=== PATIENT | male | born 1965 | race Caucasian/White ===

== ENCOUNTER 2020-01-25 05:09 | Emergency (ER) | payer SELFPAY ==
[~2020-01-25] VITALS: Ht 205.7 cm; Wt 113.4 kg
[~2020-01-25 05:09] MED LIST: CARAFATE1 G PO; HYDROCODONE-APA1 TAB PO; NATURAL THYROID; PRILOSEC20 MG PO
[2020-01-25 05:21] VITALS: Ht 205.7 cm; Wt 113.4 kg
[2020-01-25 05:45] LABS: BASOPHILS 0.1 % (0-2); EOSINOPHILS 0.2 % (0-7); HEMATOCRIT 43.9 % (42.0-54.0); HEMOGLOBIN 14.5 g/dL (13.5-17.5); IMMATURE GRANULOCYTES 0.3 % (0-5); LYMPHOCYTES 19.8 % (15-50); MCH 30.2 pg (26.0-34.0); MCV 91.5 fL (80.0-100.0); MEAN PLATELET VOLUME 12.2 fL (7.4-10.4); MONOCYTES 11.1 % (2-11); NEUTROPHILS 68.5 % (40-80); RDW 13.1 % (11.5-14.5); WBC 11.5 10x3/uL (4.8-10.8)
[2020-01-25 05:50] LABS: BILIRUBIN NEGATIVE (NEGATIVE); GLUCOSE NEGATIVE (NEGATIVE); KETONE SMALL mg/dL (NEGATIVE); NITRITE NEGATIVE (NEGATIVE); UROBILINOGEN NORMAL (NORMAL)
[2020-01-25 05:52] LABS: BACTERIA FEW /hpf (NEGATIVE); EPITHELIAL CELLS 0-5 /hpf (0-5); RED CELLS - URINE 0-5 /hpf (0-5); WHITE CELLS - URINE 0-5 /hpf (NEGATIVE)
[2020-01-25 05:52] LABS: PLATELET COUNT 146 10x3/uL (130-400)
[2020-01-25] MEDS ORDERED: FLOMAX0.4 MG PO (06:14)
[2020-01-25] MEDS ORDERED: MACROBID100 MG PO (06:14)
[2020-01-25 07:53] LABS: CALC OSMOLALITY 265 mosm/kg (275-300); CALCIUM 8.8 mg/dL (8.5-10.1); CARBON DIOXIDE 24.8 mmol/L (21.0-32.0); CHLORIDE - SERUM 99 mmol/L (98-107); CREATININE - SERUM 1.1 mg/dL (0.6-1.3); GLUCOSE 113 mg/dL (74-106); POTASSIUM - SERUM 4.6 mmol/L (3.5-5.1); SODIUM 133 mmol/L (136-145); UREA NITROGEN 11 mg/dL (7-18); eGFR NON AFRICAN AMERICAN 74 mL/min (90-120)
[2020-01-25 08:01] LABS: ALKALINE PHOSPHATASE 76 U/L (30-120); ALT (SGPT) 8 U/L (10-68); AMYLASE - SERUM 32 U/L (25-115); BILIRUBIN - TOTAL 2.23 mg/dL (0.2-1.3); LIPASE 104 U/L (73-393); PROTEIN - SERUM 7.6 g/dL (6.4-8.2); TROPONIN-I < 0.017 ng/mL (0.000-0.060)
[2020-01-25 08:53] VITALS: BP 108/73
== END 2020-01-25 08:40 | disposition home or self-care (01) ==
LOC: D.ER 05:09
PROVIDERS: Emergency Medicine
DX: K59.00 Constipation, unspecified (principal); R33.9 Retention of urine, unspecified; R82.71 Bacteriuria; M54.9 Dorsalgia, unspecified

== ENCOUNTER 2020-01-28 07:35 | Inpatient (IN) | payer MEDICAID ==
[2020-01-28] VITALS (7 sets, daily range): BP systolic 99–124; BP diastolic 50–71; Ht 205.7 cm; Wt 120.5 kg
[~2020-01-28] VITALS: Ht 205.7 cm; Wt 120.5 kg
[~2020-01-28 07:35] MED LIST changes: +FLOMAX0.4 MG PO; +MACROBID100 MG PO
[2020-01-28] MEDS ORDERED: MACROBID100 MG PO (08:02)
[2020-01-28] MEDS ORDERED: DOXYCYCLINE HY100 M2 PO (08:03)
[2020-01-28 08:15] LABS: CALC OSMOLALITY 266 mosm/kg (275-300); CARBON DIOXIDE 28.1 mmol/L (21.0-32.0); CHLORIDE - SERUM 100 mmol/L (98-107); GLUCOSE 128 mg/dL (74-106); POTASSIUM - SERUM 4.3 mmol/L (3.5-5.1); SODIUM 133 mmol/L (136-145); UREA NITROGEN 9 mg/dL (7-18); eGFR NON AFRICAN AMERICAN 82 mL/min (90-120)
[2020-01-28 08:21] LABS: ALBUMIN 2.9 g/dL (3.4-5.0); ALKALINE PHOSPHATASE 78 U/L (30-120); ALT (SGPT) 5 U/L (10-68); BILIRUBIN - TOTAL 1.03 mg/dL (0.2-1.3); PROTEIN - SERUM 7.4 g/dL (6.4-8.2)
--- NOTE | 2020-01-28 08:38 | NUR ---
THIS NURSE WAS NOT ABLE TO OBTAIN FRESH URINE AT THIS TIME.
--- NOTE | 2020-01-28 08:39 | NUR ---
PT TO CT
--- NOTE | 2020-01-28 09:16 | NUR ---
URINE TO LAB
[2020-01-28 09:22] LABS: BASOPHILS 0.1 % (0-2); EOSINOPHILS 0.5 % (0-7); HEMATOCRIT 43.4 % (42.0-54.0); HEMOGLOBIN 14.3 g/dL (13.5-17.5); IMMATURE GRANULOCYTES 0.2 % (0-5); LYMPHOCYTES 14.4 % (15-50); MCHC 32.9 g/dL (31.0-37.0); MONOCYTES 10.6 % (2-11); NEUTROPHILS 74.2 % (40-80); PLATELET COUNT 175 10x3/uL (130-400); RBC 4.77 10x6/uL (4.20-6.10)
[2020-01-28 09:34] LABS: BILIRUBIN NEGATIVE (NEGATIVE); GLUCOSE NEGATIVE (NEGATIVE); KETONE NEGATIVE (NEGATIVE); NITRITE NEGATIVE (NEGATIVE); SPECIFIC GRAVITY 1.005 (1.005-1.020); UROBILINOGEN NORMAL (NORMAL)
[2020-01-28 09:35] LABS: BACTERIA FEW /hpf (NEGATIVE); EPITHELIAL CELLS RARE /hpf (0-5); RED CELLS - URINE 0-5 /hpf (0-5); WHITE CELLS - URINE NSEEN /hpf (NEGATIVE)
[2020-01-28 09:36] LABS: CALCIUM OXALATE CRYSTALS RARE /hpf (NONE SEEN)
--- NOTE | 2020-01-28 10:19 | NUR ---
PT ARRIVED WITH INDWELLING CATHETER. DARK YELLOW URINE WITH SEDAMENT.
--- NOTE | 2020-01-28 10:19 | NUR ---
LEVAQUIN 750MG/90MIN INFUSING UPON TRANSFER FLAGYL 500MG/H INFUSING UPON TRANSFER
--- NOTE | 2020-01-28 18:15 | NUR ---
PATIENT RECEIVED FROM OR AND STABLE WITH FAMILY PRESENT DRESSING INTACT TO PERIRECTAL AREA. RESPONDS APPROPRIATE TO VERBAL COMMANDS. O2 3L N/C WITH IVF REESTABLISHED
--- NOTE | 2020-01-29 02:25 | NUR ---
PT RESTING IN BED. EYES CLOSED. NO SIGNS OF DISTRESS. BREATHING EVEN AND UNLABORED. IV SITE RT FA DRESSING CLEAN DRY AND INTACT. NO SIGNS OF INFECTION OR INFULTRATION. SKIN CLEAN DRY AND INTACT. BEASLEY IN PLACE. DRESSING TO BUTTOCKS CLEAN DRY AND INTACT. WILL CONTINUE PLAN OF CARE. CALL LIGHT IN REACH. BED LOWERED AND LOCKED. BED RAILS UPX3.
[2020-01-29 04:00] VITALS: BP 88/54
[2020-01-29 04:47] LABS: BASOPHILS 0.2 % (0-2); EOSINOPHILS 1.5 % (0-7); HEMATOCRIT 36.3 % (42.0-54.0); HEMOGLOBIN 11.7 g/dL (13.5-17.5); IMMATURE GRANULOCYTES 0.6 % (0-5); LYMPHOCYTES 16.3 % (15-50); MCH 29.7 pg (26.0-34.0); MCHC 32.2 g/dL (31.0-37.0); MCV 92.1 fL (80.0-100.0); MEAN PLATELET VOLUME 11.3 fL (7.4-10.4); MONOCYTES 11.5 % (2-11); NEUTROPHILS 69.9 % (40-80); PLATELET COUNT 185 10x3/uL (130-400); RBC 3.94 10x6/uL (4.20-6.10); RDW 13.2 % (11.5-14.5)
--- NOTE | 2020-01-29 04:48 | NUR ---
I have reviewed this patient and I concur with the Shift Assessment completed by the Licensed Practical Nurse today this shift.
[2020-01-29 05:21] LABS: CALC OSMOLALITY 271 mosm/kg (275-300); CALCIUM 8.1 mg/dL (8.5-10.1); CARBON DIOXIDE 28.8 mmol/L (21.0-32.0); CHLORIDE - SERUM 103 mmol/L (98-107); GLUCOSE 110 mg/dL (74-106); MAGNESIUM - SERUM 2.3 mg/dL (1.8-2.4); POTASSIUM - SERUM 4.5 mmol/L (3.5-5.1); SODIUM 136 mmol/L (136-145); UREA NITROGEN 9 mg/dL (7-18); eGFR NON AFRICAN AMERICAN 82 mL/min (90-120)
--- NOTE | 2020-01-29 07:30 | NUR ---
PATIENT AND FAMILY IN ROOM. CHAIR CHANGED OUT FOR FAMILY TO BE MORE COMFORTABLE WELL TO SLEEP IN. NO NEEDS AT THIS TIME. WCTM
--- NOTE | 2020-01-29 08:20 | OP ---
PATIENT NAME: KIRSTEN DE MEDICAL RECORD: [id number] :63 LOCATION:D.MS [facility] ADMISSION DATE:01/28/20 SURGEON: TESSY WOO MD DATE OF OPERATION: 01/28/2020 SURGEON: Tessy Woo MD PREOPERATIVE DIAGNOSIS: Perirectal abscess. POSTOPERATIVE DIAGNOSIS: Complex multiloculated horseshoe perirectal abscess. PROCEDURE PERFORMED: Incision and drainage of perirectal abscess with packing. ANESTHESIA: General. COMPLICATIONS: None. WOUND: Grossly contaminated. SPECIMENS: Anaerobic and aerobic fluid cultures. OPERATIVE COURSE: After consent was obtained, the patient was taken to the operating room and placed in supine position on the operating table. Next, general anesthesia was given via endotracheal intubation after a timeout was performed to confirm the correct patient and procedure. The patient was then placed into the lithotomy position. The perineum was prepped and draped in typical sterile fashion. A 30 mL of local anesthetic were injected. There was an area of necrotic-appearing skin over the area of greatest fluctuance on the left side of the rectum. The rectum was serially dilated using the Collier-Hill retractors. There was no active communication or drainage into the rectum were some internal hemorrhoids noted. The skin was excised using a 15 blade scalpel, approximately 120 cc of purulent fluid suctioned from the wound. Anaerobic and aerobic fluid cultures were obtained and sent for Gram stain and sensitivity. Blunt finger dissection was used to break up all loculations. The perirectal abscess extended circumferentially around the rectum in a horseshoe configuration. Approximate total - length of 16 cm, 4 cm depth, and 5 cm in width. The wound was copiously irrigated and suctioned. The wound was then packed with two 2 inch Kerlix soaked in peroxide and iodine. At the end of the case, all needle and instrument counts were correct. No complications occurred. The patient was extubated and transferred to the PACU in stable condition. TRANSINT:[id number] Voice Confirmation ID: [id number] DOCUMENT ID: [id number] TESSY WOO MD at 0820 CC: [id number] DICTATION DATE: 01/28/20 172 WAITER/WAITRESS SECOND CLASS: 01/29/20 0055 [place] [address]
[2020-01-29 08:57] VITALS: BP 94/57
--- NOTE | 2020-01-29 10:48 | NUR ---
PATIENT STATES HE WOULD LIKE A SHOWER. I CAN DO A DRESSING CHANGE AFTERWARDS. CL IN REACH. MIRNATM
[2020-01-29 12:48] VITALS: BP 122/70
[2020-01-29 13:48] VITALS: BP 119/67
[2020-01-29 20:00] VITALS: BP 122/68
[2020-01-30] VITALS: BP 130/74
[2020-01-30 04:00] VITALS: BP 117/64
[2020-01-30 06:12] LABS: BASOPHILS 0.3 % (0-2); EOSINOPHILS 5.3 % (0-7); HEMATOCRIT 38.3 % (42.0-54.0); HEMOGLOBIN 12.3 g/dL (13.5-17.5); LYMPHOCYTES 22.4 % (15-50); MCH 29.5 pg (26.0-34.0); MCHC 32.1 g/dL (31.0-37.0); MCV 91.8 fL (80.0-100.0); MEAN PLATELET VOLUME 11.2 fL (7.4-10.4); MONOCYTES 10.3 % (2-11); NEUTROPHILS 59.7 % (40-80); PLATELET COUNT 182 10x3/uL (130-400); RBC 4.17 10x6/uL (4.20-6.10); RDW 13.2 % (11.5-14.5)
[2020-01-30 06:29] LABS: CALC OSMOLALITY 275 mosm/kg (275-300); CALCIUM 8.2 mg/dL (8.5-10.1); CHLORIDE - SERUM 105 mmol/L (98-107); GLUCOSE 120 mg/dL (74-106); MAGNESIUM - SERUM 2.4 mg/dL (1.8-2.4); PHOSPHOROUS 4.5 mg/dL (2.5-4.9); POTASSIUM - SERUM 4.6 mmol/L (3.5-5.1); SODIUM 138 mmol/L (136-145); UREA NITROGEN 10 mg/dL (7-18); eGFR NON AFRICAN AMERICAN 82 mL/min (90-120)
--- NOTE | 2020-01-30 08:07 | NUR ---
PT RESTING IN BED WITH EYES OPEN, ALERT AND ORIENTED. IV LOCATED TO RIGHT FOREARM RUNNING KVO. NO S/S OF DISTRESS , DENIES NEEDS AT THIS TIME, WILL CONT TO MONITOR.
[2020-01-30 08:29] VITALS: BP 121/75
[2020-01-30 12:47] VITALS: BP 153/72
[2020-01-30 16:45] VITALS: BP 126/71
--- NOTE | 2020-01-30 19:00 | NUR ---
BEDSIDE REPORT RECEIVED AND CARE OF PT ASSUMED. PT LYING IN SUPINE POSITION WITH EYES CLOSED. IV TO RIGHT FA PATENT WITH NS INFUSING AT KVO. WILL MONITOR FOR NEEDS.
[2020-01-30 20:00] VITALS: BP 111/68
--- NOTE | 2020-01-30 20:47 | NUR ---
PT DECLINED HS MEDS. WILL CONTINUE TO MONITOR FOR NEEDS.
[2020-01-31] VITALS: BP 148/83
[2020-01-31 04:00] VITALS: BP 139/74
[2020-01-31 06:06] LABS: BASOPHILS 0.4 % (0-2); EOSINOPHILS 4.5 % (0-7); HEMATOCRIT 38.2 % (42.0-54.0); HEMOGLOBIN 12.1 g/dL (13.5-17.5); IMMATURE GRANULOCYTES 4.1 % (0-5); LYMPHOCYTES 28.7 % (15-50); MCH 29.4 pg (26.0-34.0); MCHC 31.7 g/dL (31.0-37.0); MCV 92.9 fL (80.0-100.0); MEAN PLATELET VOLUME 11.4 fL (7.4-10.4); MONOCYTES 13.2 % (2-11); NEUTROPHILS 49.1 % (40-80); PLATELET COUNT 208 10x3/uL (130-400); RBC 4.11 10x6/uL (4.20-6.10); RDW 13.5 % (11.5-14.5); WBC 7.3 10x3/uL (4.8-10.8)
[2020-01-31 06:24] LABS: ANION GAP 8.9 mmol/L (8-16); CALCIUM 8.2 mg/dL (8.5-10.1); CARBON DIOXIDE 30.3 mmol/L (21.0-32.0); CREATININE - SERUM 1.1 mg/dL (0.6-1.3); MAGNESIUM - SERUM 2.1 mg/dL (1.8-2.4); PHOSPHOROUS 4.4 mg/dL (2.5-4.9); POTASSIUM - SERUM 4.2 mmol/L (3.5-5.1)
[2020-01-31 07:39] VITALS: BP 127/78
--- NOTE | 2020-01-31 09:24 | NUR ---
AWAKE, REFUSING SOME OF HIS MEDS. HE ASKED ME TO REMOVE THE OUTER DRESSING. DOES NOT WANT ANY PAIN MEDS.
[2020-01-31] MEDS ORDERED: MIRALAX17 GM PO (09:51)
[2020-01-31] MEDS ORDERED: Levaquin PO (09:51)
[2020-01-31] MEDS ORDERED: FLAGYL500 MG PO (09:53)
--- NOTE | 2020-01-31 10:21 | NUR ---
EDUCATED MR. DE ABOUT HIS BEASLEY. HE HAS BEEN REFUSING THE FLOMAX, HE STATES "I DON'T THINK I WOULD HAVE ANY PROBLEMS PEEING NOW THAT I HAD THE SURGERY DONE". I ALSO EDUCATED ABOUT KEEPING HIMSELF CLEAN. HE DID NOT CLEAN HIS BOTTOM AFTER HE HAD A BM THIS MORNING. I CLEANED HIS BOTTOM AND PLACED A FEW 4X4 ON THE OUTSIDE OF WOUND AND PLACED MESH UNDERWEAR ON THE DRESSING.
--- NOTE | 2020-01-31 10:45 | NUR ---
PT'S PHARMACY CLOSED TODAY. RX'S FOR ILIA AND EDUIN CALLED TO [facility]. SPOKE WITH KELLI, PHARMACIST.
--- NOTE | 2020-01-31 11:50 | MORECARE ---
CASE MANAGEMENT DISCHARGE SUMMARY PATIENT: KIRSTEN DE UNIT: [id number] ADM DATE: 01/28/20 AGE: 54 : 63 SEX: M ROOM/BED: D.2212 AUTHOR: KAY,DOC PHYSICIAN: REFERRING PHYSICIAN: DMITRY LEE MD DATE OF SERVICE: 01/31/20 Discharge Plan Patient Name: KIRSTEN DE Facility: [facility]:[place] : 1965 Planned Disposition: Anticipated Discharge Date: Discharge Date: Expected LOS: Initial Reviewer: [id number] Initial Review Date: 01/31/2020 Generated: 01/31/20 12:50 pm Comments DCP- Discharge Planning Updated by [email or web address]: Merry Vega on 01/31/20 10:[address] Patient Name: KIRSTEN DE Admission Status: ER Accout number: [id number] Admission Date: 01-28-2020 : 1965 Admission Diagnosis: Attending: DMITRY LEE Current LOS: 3 Anticipated DC Date: Planned Disposition: Primary Insurance: MEDICAID [place] PENDING Discharge Planning Comments: KIRSTEN DE provided verbal consent to discuss current and ongoing needs with/in the presence of HIS SISTER KO. CM MET WITH PATIENT TO DISCUSS DC PLANNING/NEEDS. PLANS TO DC TO HOME TODAY. HE IS STILL FRANDY PENDING BUT WOULD LIKE FOR WOUND CARE. 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 [facility] SIGNED FOR [facility]. REFERRAL AND DOCUMENTS FAXED TO [facility]. MSG LEFT WITH [facility] OF [facility]. CONTACT INFORMATION WAS GIVEN TO PATIENT AND HIS SISTER. STATES IF CAN'T REACH HIM ON HIS PHONE THEN CALL HIS SISTER AT [phone] AND SHE WILL CONTACT HIM. SHE LIVES SEVERAL BLOCKS FROM HIM. CM WILL FOLLOW AND ASSIST NEEDED. Lithostripper: Merry [email or web address] - Discharge Planning Initial Assessment Updated by [email or web address]: Merry Vega on 01/31/20 11:44 am * Is the patient Alert and Oriented? Yes * [facility] * [facility] * Preadmission Environment Home Alone * ADLs Independent * Additional services required to return to the preadmission environment? No * Can the patient safely return to the preadmission environment? Yes * Has this patient been hospitalized within the prior 30 days at any hospital? No External Providers External Provider: [facility] Next Contact Date: Service Request Date: Service Type: Resolution: Reviewer: Comments: Patient Name: KIRSTEN DE Page [phone] at 1150 All edits/amendments must be made on the electronic document DICTATION DATE: 01/31/20 115 TREE GIRDLER: REUBEN 01/31/20 1150 RPT#: [id number] DC DATE: STATUS: ADM IN [facility] [address] [place] [address] END OF REPORT
--- NOTE | 2020-01-31 12:02 | MORECARE ---
CASE MANAGEMENT DISCHARGE SUMMARY PATIENT: KIRSTEN DE UNIT: [id number] ADM DATE: 01/28/20 AGE: 54 : 63 SEX: M ROOM/BED: D.2212 AUTHOR: KAYDOC PHYSICIAN: REFERRING PHYSICIAN: DMITRY LEE MD DATE OF SERVICE: 01/31/20 Discharge Plan Patient Name: KIRSTEN DE Facility: [facility]:[place] : 1965 Planned Disposition: Anticipated Discharge Date: Discharge Date: Expected LOS: Initial Reviewer: [email or web address] Initial Review Date: 01/31/2020 Generated: 01/31/20 1:02 pm Comments DCP- Discharge Planning Updated by [email or web address]: Merry Vega on 01/31/20 11:[address] Patient Name: KIRSTEN DE Admission Status: ER Accout number: [id number] Admission Date: 01-28-2020 : 1965 Admission Diagnosis: Attending: DMITRY LEE Current LOS: 3 Anticipated DC Date: Planned Disposition: Primary Insurance: MEDICAID [place] PENDING Discharge Planning Comments: KIRSTEN DE provided verbal consent to discuss current and ongoing needs with/in the presence of HIS SISTER KO. CM MET WITH PATIENT TO DISCUSS DC PLANNING/NEEDS. PLANS TO DC TO HOME TODAY. HE IS STILL FRANDY PENDING BUT WOULD LIKE FOR WOUND CARE. 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 PAIGE SIGNED FOR [facility]. REFERRAL AND DOCUMENTS FAXED TO [facility] . MSG LEFT WITH [facility] OF [facility]. CONTACT INFORMATION WAS GIVEN TO PATIENT AND HIS SISTER. STATES IF CAN'T REACH HIM ON HIS PHONE THEN CALL HIS SISTER AT [phone] AND SHE WILL CONTACT HIM. SHE LIVES SEVERAL BLOCKS FROM HIM. CM WILL FOLLOW AND ASSIST NEEDED. Needle Straightener: Merry Appended by Merry Vega on 01/31/2020 12:01 CDT: WOUND CARE INSTRUCTIONS: KEEP CLEAN AND DRY. CHANGE DAILY AND NEEDED. PER DR. WALLACE. DCPIA - Discharge Planning Initial Assessment Updated by [email or web address]: Merry Vega on 01/31/20 11:44 am * Is the patient Alert and Oriented? Yes * [facility] * [facility] * Preadmission Environment Home Alone * ADLs Independent * Additional services required to return to the preadmission environment? No * Can the patient safely return to the preadmission environment? Yes * Has this patient been hospitalized within the prior 30 days at any hospital? No Last DP export: 01/31/20 10:50 a Patient Name: KIRSTEN DE Page [phone] at 1202 All edits/amendments must be made on the electronic document DICTATION DATE: 01/31/20 120 CHIMNEY BUILDER: REUBEN 01/31/20 1202 RPT#: [id number] DC DATE: STATUS: ADM IN [facility] [address] [place] [address] END OF REPORT
--- NOTE | 2020-01-31 12:46 | NUR ---
DISCHARGE INSTRUCTIONS GONE OVER WITH THE PATIENT AND A NURSE HALIE. IV REMOVED. LEFT VIA WHEELCHAIR.
--- NOTE | 2020-01-31 17:10 | MORECARE ---
CASE MANAGEMENT DISCHARGE SUMMARY PATIENT: KIRSTEN DE UNIT: [id number] ADM DATE: 01/28/20 AGE: 54 : 63 SEX: M ROOM/BED: D.2212 AUTHOR: KAYDOC PHYSICIAN: REFERRING PHYSICIAN: DMITRY LEE MD DATE OF SERVICE: 01/31/20 Discharge Plan Patient Name: KIRSTEN DE Facility: [facility]:[place] : 1965 Planned Disposition: Anticipated Discharge Date: Discharge Date: 01/31/2020 Expected LOS: Initial Reviewer: [id number] Initial Review Date: 01/31/2020 Generated: 01/31/20 6:09 pm Comments DCP- Discharge Planning Updated by [email or web address]: Merry Vega on 01/31/20 11:[address] Patient Name: KIRSTEN DE Admission Status: ER Accout number: [id number] Admission Date: 01-28-2020 : 1965 Admission Diagnosis: Attending: DMITRY LEE Current LOS: 3 Anticipated DC Date: Planned Disposition: Primary Insurance: MEDICAID [place] PENDING Discharge Planning Comments: KIRSTEN DE provided verbal consent to discuss current and ongoing needs with/in the presence of HIS SISTER KO. CM MET WITH PATIENT TO DISCUSS DC PLANNING/NEEDS. PLANS TO DC TO HOME TODAY. HE IS STILL FRANDY PENDING BUT WOULD LIKE FOR WOUND CARE. 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 [facility] SIGNED FOR [facility]. REFERRAL AND DOCUMENTS FAXED TO [facility] . MSG LEFT WITH [facility]. CONTACT INFORMATION WAS GIVEN TO PATIENT AND HIS SISTER. STATES IF CAN'T REACH HIM ON HIS PHONE THEN CALL HIS SISTER AT [phone] AND SHE WILL CONTACT HIM. SHE LIVES SEVERAL BLOCKS FROM HIM. CM WILL FOLLOW AND ASSIST NEEDED. New Accounts Clerk: Merry Appended by Merry Vega on 01/31/2020 12:01 CDT: WOUND CARE INSTRUCTIONS: KEEP CLEAN AND DRY. CHANGE DAILY AND NEEDED. PER DR. WALLACE. DCPIA - Discharge Planning Initial Assessment Updated by [id number]: Merry Vega on 01/31/20 11:44 am * Is the patient Alert and Oriented? Yes * [facility] * [facility] * Preadmission Environment Home Alone * ADLs Independent * Additional services required to return to the preadmission environment? No * Can the patient safely return to the preadmission environment? Yes * Has this patient been hospitalized within the prior 30 days at any hospital? No Coverage Notice Reviewer: [id number] Katherine Vega Notice Issued Date-Time: 01/31/2020 12:03 Notice Type: Patient Choice Letter Notice Delivered To: Patient Relationship to Patient: Construction Cost Estimator Name: Delivery Method: HAND - Hand Delivered Kylah Days: Prior Verbal Notification: Recipient Understood Notice: Yes Recipient Signature: Yes Med Rec Note Co-signed by Attending: Coverage Notice Comment: MICHELLE CARRILLO OR HERIBERTO Last DP export: 01/31/20 11:02 a Patient Name: KIRSTEN DE Page 75050 at 1710 All edits/amendments must be made on the electronic document DICTATION DATE: 01/31/201708 WHEEL INSTALLER: REUBEN 01/31/201708 RPT#: [id number] DC DATE:01/31/20 STATUS: DIS IN [facility] [address] [place] [address] END OF REPORT
--- NOTE | 2020-02-01 17:07 | MORECARE ---
CASE MANAGEMENT DISCHARGE SUMMARY PATIENT: KIRSTEN DE UNIT: [id number] ADM DATE: 01/28/20 AGE: 54 : 63 SEX: M ROOM/BED: D.2212 AUTHOR: BING VILLANUEVA PHYSICIAN: REFERRING PHYSICIAN: DMITRY LEE MD DATE OF SERVICE: 02/01/20 Discharge Plan Patient Name: KIRSTEN DE Facility: [facility]:[place] : 1965 Planned Disposition: Anticipated Discharge Date: Discharge Date: 01/31/2020 Expected LOS: Initial Reviewer: [id number] Initial Review Date: 01/31/2020 Generated: 02/01/20 6:06 pm Comments DCP- Discharge Planning Updated by [email or web address]: Rochelle Stanley on 02/01/20 4:[address] DCM received call from patient's sister, Ko, who informed DCM that they received a call from [facility] stating they do not accept Medicaid Pending. After DCM spoke with patient to obtain verbal consent to speak with Ko, DCM called Sangeetha at [facility] to inquire on status of patient's admission. [facility] informed DCM that they can not accept Medicaid pending, but could accept self pay at $245/day. DCM called patient back informed him of what Sangeetha with [facility] said. DCM received verbal consent to call all home health agencies to see if anyone would accept Medicaid Pending. DCM called: [facility] and spoke with Vikki Marie and spoke with Maury Owen and spoke with Bri [facility] and spoke with Suzy [facility] and spoke with Hemal; all agencies informed DCM that they do not accept Medicaid Pending. DCM called patient and his sister back informed them of inability to get a home health to accept Medicaid Pending referral. Patient stated he just finished speaking with Sangeetha at [facility]. States she informed him of private pay rate and he told her that he thought he was doing good and he would call her if he decided he needed home health. Patient denies any needs at this time. DCM confirmed this information with Sangeetha at [facility]. DCM called Dr. Hedrick's office and left a message with his nurse Ramakrishna regarding the above. DCP- Discharge Planning Updated by [id number]: Merry Vega on 01/31/20 11:[address] Patient Name: KIRSTEN DE Admission Status: ER Accout number: [id number] Admission Date: 01-28-2020 : 1965 Admission Diagnosis: Attending: DMITRY LEE Current LOS: 3 Anticipated DC Date: Planned Disposition: Primary Insurance: MEDICAID [place] PENDING Discharge Planning Comments: KIRSTEN DE provided verbal consent to discuss current and ongoing needs with/in the presence of HIS SISTER KO. CM MET WITH PATIENT TO DISCUSS DC PLANNING/NEEDS. PLANS TO DC TO HOME TODAY. HE IS STILL FRANDY PENDING BUT WOULD LIKE FOR WOUND CARE. 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 [facility]IGE SIGNED FOR [facility]. REFERRAL AND DOCUMENTS FAXED TO [facility] MICHELLE. MSG LEFT WITH [facility] OF [facility]. CONTACT INFORMATION WAS GIVEN TO PATIENT AND HIS SISTER. STATES IF CAN'T REACH HIM ON HIS PHONE THEN CALL HIS SISTER AT [phone] AND SHE WILL CONTACT HIM. SHE LIVES SEVERAL BLOCKS FROM HIM. CM WILL FOLLOW AND ASSIST NEEDED. Hot Oiler: Merry Appended by Merry Vega on 01/31/2020 12:01 CDT: WOUND CARE INSTRUCTIONS: KEEP CLEAN AND DRY. CHANGE DAILY AND NEEDED. PER DR. WALLACE. DCPIA - Discharge Planning Initial Assessment Updated by [id number]: Merry Vega on 01/31/20 11:44 am * Is the patient Alert and Oriented? Yes * [facility] * [facility] * Preadmission Environment Home Alone * ADLs Independent * Additional services required to return to the preadmission environment? No * Can the patient safely return to the preadmission environment? Yes * Has this patient been hospitalized within the prior 30 days at any hospital? No Coverage Notice Reviewer: [id number] - Merry Vega Notice Issued Date-Time: 01/31/2020 12:03 Notice Type: Patient Choice Letter Notice Delivered To: Patient Relationship to Patient: Engine Test Cell Technician Name: Delivery Method: HAND - Hand Delivered Kylah Days: Prior Verbal Notification: Recipient Understood Notice: Yes Recipient Signature: Yes Med Rec Note Co-signed by Attending: Coverage Notice Comment: [facility] Last DP export: 01/31/20 4:10 p Patient Name: KIRSTEN DE Page [phone] at 1707 All edits/amendments must be made on the electronic document DICTATION DATE: 02/01/201705 C D STILL OPERATOR: REUBEN 02/01/201705 RPT#: [id number] DC DATE:01/31/20 STATUS: DIS IN [facility] [address] [place] [address] END OF REPORT
[2020-02-02 20:07] LABS: AEROBE ID Final report (())
== END 2020-01-31 12:47 | disposition home health service (06) | DRG 345 ==
LOC: D.ER 07:35 → D.MS 09:27
PROVIDERS: Emergency Medicine; Surgery; ADMIT Internal Medicine Nephrology; ATTEND Internal Medicine Nephrology
PROC: 0HB9XZZ Excision of Perineum Skin, External Approach (ICD-10-PCS; 2020-01-28)
PROC: 0D9P0ZZ Drainage of Rectum, Open Approach (ICD-10-PCS; principal; 2020-01-28 13:30)
DX: K61.1 Rectal abscess (principal); E87.1 Hypo-osmolality and hyponatremia; K57.30 Diverticulosis of large intestine without perforation or abscess without bleeding; R33.9 Retention of urine, unspecified

== ENCOUNTER 2020-03-15 13:39 | Day surgery (SDC) | payer MEDICAID ==
[2020-03-15] VITALS (12 sets, daily range): BP systolic 112–150; BP diastolic 68–88; Ht 205.7 cm; Wt 120.5 kg
[~2020-03-15] VITALS: Ht 205.7 cm; Wt 120.5 kg
[~2020-03-15 13:39] MED LIST changes: +DOXYCYCLINE HY100 M2 PO; +FLAGYL500 MG PO; +Levaquin PO; +MIRALAX17 GM PO
--- NOTE | 2020-03-15 17:45 | NUR ---
ARRIVED TO ROOM 220 VIA BED AWAKE AND ALERT. RESP EVEN AND UNLABORED WITH NO DISTRESS NOTED. CAN EXPRESS NEEDS AND WANTS. C/O RECTAL PAIN RATING 10/10 ON PAIN SCALE. PT HAD SCHEDULE TORDAL THAT WILL BE GIVEN. IV NOTED TO RIGHT FOREARM WHICH WILL BE SL AFTER ANTIBOTICS FINISH. VS STARTED PER PROTOCOL. ICE CHIPS GIVEN. C/L IN REACH AT BEDSIDE.
[2020-03-15 18:20] LABS: BASOPHILS 0.3 % (0-2); EOSINOPHILS 0.7 % (0-7); HEMATOCRIT 44.4 % (42.0-54.0); HEMOGLOBIN 14.2 g/dL (13.5-17.5); IMMATURE GRANULOCYTES 0.5 % (0-5); LYMPHOCYTES 21.8 % (15-50); MCH 30.3 pg (26.0-34.0); MCV 94.7 fL (80.0-100.0); MEAN PLATELET VOLUME 11.2 fL (7.4-10.4); MONOCYTES 5.3 % (2-11); NEUTROPHILS 71.4 % (40-80); RBC 4.69 10x6/uL (4.20-6.10); RDW 13.8 % (11.5-14.5); WBC 7.4 10x3/uL (4.8-10.8)
[2020-03-15 18:37] LABS: PLATELET COUNT 151 10x3/uL (130-400)
--- NOTE | 2020-03-15 19:40 | NUR ---
LYING IN BED. ALERT AND ORIENTED X4. JUST CAME BACK FROM [place]. STATES HE HAD A BM. V/S STABLE. DENIES PAIN. PERIRECTAL DRSG NOTED. SALINE LOCK NOTED TO RT FOREARM. AMBULTORY. ASKING FOR FOOD. STATES HE HASNT EATEN ANYTHING ALL DAY. HAS TOLERATED WATER. SR ELEVATED X2. CL IN REACH. STATES HE HAS VOIDED SINCE SURGERY.
--- NOTE | 2020-03-15 21:20 | NUR ---
REFUSED MIRALAX. ATTEMPTED TO EXPLAIN THE USE AND HE STATES, "I HAD A BOWEL MOVEMENT TONIGHT AND I'M NOT GOING TO TAKE IT."
[2020-03-16 00:02] VITALS: BP 131/77
--- NOTE | 2020-03-16 03:00 | NUR ---
LYING IN BED. FINALLY NAPPING OFF AND ON. DENIES PAIN. CL IN REACH. NO DISTRESS.
--- NOTE | 2020-03-16 04:36 | NUR ---
EATING ELZA CRACKERS AND PEANUT BUTTER, DRINKING JUICE AND WATER. DENIES PAIN. NO DISTRESS. CL IN REACH.
[2020-03-16 04:45] VITALS: BP 114/69
[2020-03-16 05:08] LABS: BASOPHILS 0.1 % (0-2); EOSINOPHILS 0 % (0-7); HEMOGLOBIN 15.3 g/dL (13.5-17.5); IMMATURE GRANULOCYTES 0.1 % (0-5); LYMPHOCYTES 22.9 % (15-50); MCH 29.7 pg (26.0-34.0); MCHC 31.9 g/dL (31.0-37.0); MCV 93.2 fL (80.0-100.0); MEAN PLATELET VOLUME 11.8 fL (7.4-10.4); MONOCYTES 3.3 % (2-11); NEUTROPHILS 73.6 % (40-80); RBC 5.15 10x6/uL (4.20-6.10); RDW 13.5 % (11.5-14.5)
[2020-03-16 05:24] LABS: PLATELET COUNT 190 10x3/uL (130-400)
[2020-03-16 05:28] LABS: CALCIUM 8.8 mg/dL (8.5-10.1); CARBON DIOXIDE 27.1 mmol/L (21.0-32.0); CREATININE - SERUM 1.1 mg/dL (0.6-1.3); POTASSIUM - SERUM 4.1 mmol/L (3.5-5.1)
--- NOTE | 2020-03-16 08:30 | NUR ---
PATIENT REQUESTED AND RECIEVED WATER. NO FURTHER NEEDS AT THIS TIME. "BESIDES BREAKFAST I USUALLY EAT AT 430." CL IN REACH. MESSAGE ON PHONE READ TO HIM FROM MOM PER HIS REQUEST. SJ
--- NOTE | 2020-03-16 08:50 | OP ---
PATIENT NAME: KIRSTEN DE MEDICAL RECORD: [id number] :63 LOCATION:D.MS [facility] ADMISSION DATE: SURGEON: TESSY WOO MD DATE OF OPERATION: 03/15/2020 SURGEON: Tessy Woo MD PREOPERATIVE DIAGNOSIS: Recurrent perirectal abscess. POSTOPERATIVE DIAGNOSIS: Recurrent perirectal abscess. PROCEDURE PERFORMED: Incision and drainage of perirectal abscess of the right buttock 6 x 3 x 3 cm. WOUND CLASS: Grossly contaminated. SPECIMENS: Anaerobic and aerobic cultures for Gram stain and sensitivity. OPERATIVE COURSE: After consent was obtained, the patient was taken to the operating room and placed in the supine position on the operating table. Next, general anesthesia was given via endotracheal intubation after a timeout was performed to confirm the correct patient and procedure. The patient was placed in the [facility] cane stirrups. The perineum was prepped and draped in typical sterile fashion. The area of the right buttock was raised, warm and erythematous. There was active draining through multiple sinus openings in the skin. The sinus openings were connected using a 15 blade scalpel approximately 30 cc of pus was removed from the wound. At this time, anaerobic and aerobic cultures were obtained and sent for Gram stain and sensitivity. A small ellipse of skin was taken with a 15 blade scalpel. The wound was multiloculated. Loculations were taken with blunt finger dissection. The wound was then irrigated with peroxide. The abscess cavity was packed with iodoform gauze. Again, the abscess cavity was 6 x 3 x 3 cm. The wound was then covered with 4 x 4s gauze. At the end of the case, all needle and instrument counts were correct. No complications occurred. The patient was extubated and transferred to the PACU in stable condition. TRANSINT:[id number] Voice Confirmation ID: [id number] DOCUMENT ID: [id number] TESSY WOO MD at 0850 CC: [id number] DICTATION DATE: 03/15/20 1718 DEMOGRAPHER: 03/16/20 0232 [facility] [address] [place] [address]
[2020-03-16 08:54] VITALS: BP 120/73
[2020-03-16] MEDS ORDERED: SMZ-TMP DS 800-1 TAB PO (09:26)
[2020-03-16] MEDS ORDERED: HYDROCODON-ACE1 EAC7 PO (09:26)
--- NOTE | 2020-03-16 11:41 | NUR ---
ERIKA MET WITH PATIENT TO ASSESS DISCHARGE PLANNING NEEDS. HE STATES THAT HE IS INDPENENDENT WITH HIS CARE AND WILL BE DOING HIS OWN DRESSING CHANGES AND DR WOO SAID THAT WAS FINE. HIS MOTHER WILL BE HIS VACUUM REPAIRER HOME AND DENIES ANY NEEDS AT THIS TIME. REFUSAL FOR HH OBTAINED AND WILL BE PLACED IN HIS CHART
--- NOTE | 2020-03-16 12:33 | NUR ---
IV THERAPY REMOVED WITH TIP INTACT FROM RIGHT FOREARM. DISCHARGE INSTRUCTIONS GIVEN. PATIENT VERBALIZED UNDERSTANDING. WILL EAT LUNCH THEN NOTIFY ME WHEN HE IS LEAVING WITH FAMILY. STATES HE WOULD RATHER WALK DOWN THAN RIDE IN THE WHEELCHAIR. SOME ABD PADS GIVEN.
== END 2020-03-16 13:45 | disposition home or self-care (01) ==
LOC: D.OPS 13:39 → D.CT 13:39 → EDSTATUS 14:00 → D.CT 14:00 → D.MS 17:38 → D.OPS 03-16 13:45
PROVIDERS: Anesthesiology; ATTEND Surgery
DX: K61.1 Rectal abscess (principal); K21.9 Gastro-esophageal reflux disease without esophagitis; I27.20 Pulmonary hypertension, unspecified

== ENCOUNTER 2020-06-25 14:20 | Inpatient (IN) | payer OTHER ==
[~2020-06-25] VITALS: Ht 205.7 cm; Wt 120.5 kg
[~2020-06-25 14:20] MED LIST changes: +HYDROCODON-ACE1 EAC7 PO; +SMZ-TMP DS 800-1 TAB PO
[2020-06-25 14:54] LABS: BASOPHILS 0.1 % (0-2); EOSINOPHILS 0 % (0-7); HEMATOCRIT 46.4 % (42.0-54.0); HEMOGLOBIN 15.6 g/dL (13.5-17.5); IMMATURE GRANULOCYTES 0.3 % (0-5); LYMPHOCYTES 17.1 % (15-50); MCH 30.9 pg (26.0-34.0); MCHC 33.6 g/dL (31.0-37.0); MCV 91.9 fL (80.0-100.0); MEAN PLATELET VOLUME 11.7 fL (7.4-10.4); MONOCYTES 8.9 % (2-11); NEUTROPHILS 73.6 % (40-80); RBC 5.05 10x6/uL (4.20-6.10); RDW 13.3 % (11.5-14.5); WBC 14.3 10x3/uL (4.8-10.8)
[2020-06-25 15:00] LABS: PLATELET COUNT 133 10x3/uL (130-400)
[2020-06-25 15:07] LABS: APTT 28.5 SECONDS (22.8-39.4); CALC OSMOLALITY 268 mosm/kg (275-300); CALCIUM 8.6 mg/dL (8.5-10.1); CARBON DIOXIDE 25.5 mmol/L (21.0-32.0); CHLORIDE - SERUM 100 mmol/L (98-107); GLUCOSE 108 mg/dL (74-106); POTASSIUM - SERUM 3.6 mmol/L (3.5-5.1); SODIUM 135 mmol/L (136-145); UREA NITROGEN 8 mg/dL (7-18); eGFR NON AFRICAN AMERICAN 82 mL/min (90-120)
[2020-06-25 15:13] LABS: ALBUMIN 3.6 g/dL (3.4-5.0); ALKALINE PHOSPHATASE 84 U/L (30-120); ALT (SGPT) 10 U/L (10-68); BILIRUBIN - TOTAL 3.94 mg/dL (0.2-1.3); INR 1.07 (0.85-1.17); PROTEIN - SERUM 7.2 g/dL (6.4-8.2); PROTIME 13.9 SECONDS (11.6-15.0)
[2020-06-25 15:21] LABS: CKMB 0.5 U/L (0.0-3.6); CREATINE KINASE 35 UL (21-232); TROPONIN-I < 0.017 ng/mL (0.000-0.060)
[2020-06-25 16:42] LABS: BILIRUBIN NEGATIVE (NEGATIVE); GLUCOSE NEGATIVE (NEGATIVE); KETONE SMALL mg/dL (NEGATIVE); NITRITE NEGATIVE (NEGATIVE); UROBILINOGEN NORMAL (NORMAL)
[2020-06-25 17:46] VITALS: BP 126/70
--- NOTE | 2020-06-25 18:43 | NUR ---
RECEIVED PATIENT FROM ER. A&O ACCOMPANIED BY SISTER. NO C/O PAIN. NO S/S OF ACUTE DISTRESS NOTED. IV TO RIGHT FOREARM, NS INFUSING @ 100ML/HR. SITE PATENT WITHOUT REDNESS OR SWELLING. REDNESS/BLOODY DRAINAGE TO RECTAL AREA. DENIES ANY NEEDS AT THIS TIME. CALL LIGHT IN REACH. WILL CONTINUE TO MONITOR.
--- NOTE | 2020-06-25 19:05 | NUR ---
PATIENT ALERT AND ORIENTED WHEN ENTERING THE ROOM. RIGHT FOREARM 18G IV IS PATENT AND INFUSING VANCOMYCIN AND NS PER ORDER. PATIENT ASSESSMENT COMPLETE. SEE CHART. DENIES PAIN DURING ASSESSMENT. AMBULATORY AD FORTUNATO PER ORDERS. PATIENT DENIES QUESTIONS OR CONCERNS AT THIS TIME. CALL LIGHT CLOSE. CPOC.
[2020-06-25 20:44] VITALS: BP 105/65; BMI 28.4
[2020-06-25 20:58] VITALS: BP 105/65
--- NOTE | 2020-06-25 23:21 | NUR ---
CHANGED PATIENT PAD IN BED. 6INCH BY 4 INCH BLOODY DRAINAGE NOTED. NEW PAD LAID DOWN. DENIES FURTHER NEEDS AT THIS TIME. DENIES PAIN AT THIS TIME. CALL LIGHT REMAINS CLOSE TO PATIENT. IV ABX INFUSING PER ORDER. CPOC.
[2020-06-26 00:44] VITALS: BP 117/65
[2020-06-26 05:49] LABS: BASOPHILS 0.2 % (0-2); EOSINOPHILS 0.3 % (0-7); HEMATOCRIT 48.7 % (42.0-54.0); HEMOGLOBIN 15.9 g/dL (13.5-17.5); IMMATURE GRANULOCYTES 0.3 % (0-5); MCH 30.2 pg (26.0-34.0); MCHC 32.6 g/dL (31.0-37.0); MCV 92.6 fL (80.0-100.0); MEAN PLATELET VOLUME 11.5 fL (7.4-10.4); MONOCYTES 5.3 % (2-11); NEUTROPHILS 78.9 % (40-80); RBC 5.26 10x6/uL (4.20-6.10); RDW 13.4 % (11.5-14.5)
[2020-06-26 06:00] LABS: PLATELET COUNT 106 10x3/uL (130-400); PROTIME 13.2 SECONDS (11.6-15.0); WBC 8.8 10x3/uL (4.8-10.8)
[2020-06-26 06:01] LABS: APTT 30.7 SECONDS (22.8-39.4)
[2020-06-26 06:16] LABS: ALBUMIN 3.3 g/dL (3.4-5.0); CALCIUM 7.6 mg/dL (8.5-10.1); CARBON DIOXIDE 28.9 mmol/L (21.0-32.0); MAGNESIUM - SERUM 1.9 mg/dL (1.8-2.4); POTASSIUM - SERUM 3.9 mmol/L (3.5-5.1); PROTEIN - SERUM 6.5 g/dL (6.4-8.2)
[2020-06-26 06:19] LABS: CREATININE - SERUM 1.3 mg/dL (0.6-1.3)
--- NOTE | 2020-06-26 07:10 | NUR ---
RECEIVED REPORT, ASSUMED CARE, A&O, DENIES NEEDS, BREATHING EVEN UNLABORED, CALL LIGHT IN REACH, BED LOWEST POSITION, WILL CONTINUE POC
[2020-06-26 08:43] VITALS: BP 126/71
[2020-06-26 09:54] VITALS: Ht 205.7 cm; Wt 120.5 kg
[2020-06-26] MEDS ORDERED: LEVAQUIN750 MG PO (11:51)
--- NOTE | 2020-06-26 12:55 | NUR ---
DC PAPERS AND INSTRUCTIONS GIVEN, QUESTIONS ANSWERED, IV REMOVED TIP INTACT, DC WITH BELONGINGS
== END 2020-06-26 13:06 | disposition home or self-care (01) | DRG 395 ==
LOC: D.ER 14:20 → D.MS 18:22
PROVIDERS: Family Medicine; ADMIT Family Medicine; ATTEND Family Medicine
DX: K61.0 Anal abscess (principal); G89.29 Other chronic pain

== ENCOUNTER 2020-07-01 09:10 | Day surgery (SDC) | payer OTHER ==
[~2020-07-01] VITALS: Ht 205.7 cm; Wt 120.2 kg
--- NOTE | ~2020-07-01 | OP ---
PATIENT NAME: KIRSTEN DE MEDICAL RECORD: [id number] :63 LOCATION:[facility] ADMISSION DATE: SURGEON: DOMINGO GAITAN MD DATE OF OPERATION: 07/01/2020 PREOPERATIVE DIAGNOSES: 1. Perirectal abscess. 2. Possible [id number]-[id number]. 3. Hypertension. 4. History of GERD, status post Andriy. POSTOPERATIVE DIAGNOSES: 1. Perirectal abscess. 2. Possible guhwjsx-cm-kuj. 3. Hypertension. 4. History of GERD, status post Andriy. PROCEDURE: 1. Anal exam under anesthesia. 2. Debridement of perianal wound. SURGEON: Domingo Gaitan MD REPORT OF PROCEDURE: The patient was placed in lithotomy position. The perianal region was prepped and draped in sterile fashion. At the 1 o'clock position on the left side of the anus anteriorly, there was an opening that was present from 2 previous incision and drainages. There was no purulent material found in this wound. I was able to probe the wound and could see went medially and across the midline and it also extended deep into the tissues. I cannot find any other fistulous tracts. I went ahead and infused hydrogen peroxide into the wound bed and inspected the anus and did not see any evidence of any leakage of material through the rectal wall. I felt confident there was not a fistula. There was no sign of any inflammatory tissues in the rectum. I went ahead and did a 360 degree inspection and outside of a few small hemorrhoids. There were no other abnormalities noted. The opening that was present was very small. I went ahead and extended this medially and was able to probe around in the wound and see it a little bit better. There was no sign of any necrotic tissue. I went ahead and treated the area with electrocautery and did debridement of the top layer of tissue in order to help facilitate wound healing. We then washed it out with peroxide and placed a damp piece of gauze into the wound. COMPLICATIONS: None. CONDITION: Stable. ANESTHESIA: General endotracheal. BLOOD LOSS: 15 mL. TRANSINT:[id number] Voice Confirmation ID: [id number] DOCUMENT ID: [id number] OPERATIVE REPORT [id number] KIRSTEN DE DOMINGO GAITAN MD CC: ROCKY BAE [id number] DICTATION DATE: 07/01/20 1314 COUNTY TREASURER: 07/01/202056 DEP SDC 07/01/20 [facility] [address] [facility], [facility]
[~2020-07-01 09:10] MED LIST changes: +LEVAQUIN750 MG PO
[2020-07-01 09:57] VITALS: BP 141/78; Ht 205.7 cm; Wt 120.2 kg
[2020-07-01] MEDS ORDERED: ULTRAM50 MG PO (13:10)
--- NOTE | 2020-07-01 18:48 | NUR ---
1510 IV D/C'D WITH CANNULA INTACT, PRESSURE HELD AND DRSG PLACED. DISCHARGE INSTRUCTIONS GIVEN AND PT AND VERBALIZED AN UNDERSTANDING. DISCHARGED IN STABLE CONDITION AND WITHOUT COMPLAINT
== END 2020-07-01 15:20 | disposition home or self-care (01) ==
LOC: D.OPS 09:10
PROVIDERS: ATTEND Surgery
DX: K61.1 Rectal abscess (principal); I10 Essential (primary) hypertension; K21.9 Gastro-esophageal reflux disease without esophagitis

== ENCOUNTER → 2020-07-21 18:21 | Outpatient (CLI) | payer OTHER ==
[2020-07-01 09:57] VITALS: BMI 28.4
[~2020-07-21 18:21] MED LIST changes: +ULTRAM50 MG PO
== END | disposition home or self-care (01) ==
LOC: D.LABREF 18:21
PROVIDERS: ATTEND Surgery
DX: K61.1 Rectal abscess (principal)